=== PATIENT | male | born 1995 | race Caucasian/White ===

== ENCOUNTER 2023-09-17 20:59 | Emergency (ER) | payer MEDICAID, SELFPAY ==
[2023-09-17 20:59] VITALS: BP 145/86; PULSE 104; RESP 18; TEMP 37.2; O2SAT 100; BMI 25.1
--- NOTE | 2023-09-17 21:24 | HMH.EDGENADL ---
Discharge Plan Disposition Patient Disposition: Home, Self-Care Prescriptions Prescriptions: New metronidazole 500 mg tablet 2,000 mg PO ONCE Qty: 4 0RF ondansetron 4 mg tablet,disintegrating 4 mg PO Q6H PRN (Reason: nausea and vomiting) 5 Days Qty: 20 0RF Referrals Follow up/Referrals: Julio Oneill [Referring] - See instructions Provider,Referral, [Primary Care Provider] - See instructions Activity Restrictions/Add. Instructions Additional Instructions/Restrictions: Follow-up with Dr. Oneill to have your teeth extracted. Clinical Impressions Clinical Impression: Dental caries, Trichomoniasis, Nausea Discharge ED Provider: Melisa Pride General Adult HPI General Chief complaint: Dental/Oral Stated complaint: dental pain Time Seen by Provider: 09/17/23 21:14 Mode of Arrival: Ambulatory Source of Information: Patient Limitations: No Limitations Description of Symptoms (Recalled from ER Triage Doc. by RN): Patient reports that he has been having intermittent lower dental problems for a prolonged time. Currently he has some pressure from his left lower jaw that feels as though it's causing a knot in his left neck. Patient currently denies pain, denies fever, states that he had nausea with one episode of vomiting 2 days ago, but denies nausea at this time. History of Present Illness HPI narrative: Patient is a 28-year-old male presenting today with multiple complaints. States has had intermittent dental pain on the left mandibular molars. 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 Currently has no symptoms no pain no swelling. Intermittently has a knot in the left side of his neck but denies that currently. Intermittently also is nauseated. Of note his girlfriend also states she was recently diagnosed with trichomoniasis and would like them to be treated. Have been sexually active without protection. She denies chlamydia gonorrhea etc. Related Data Previous Rx's Medication Instructions Recorded metronidazole 500 mg tablet 2,000 mg PO ONCE #4 tabs 09/17/23 ondansetron 4 mg disintegrating 4 mg PO Q6H PRN nausea and 09/17/23 tablet vomiting 5 days #20 tabs Allergies Allergy/AdvReac Type Severity Reaction Status Date / Time No Known Allergies Allergy Verified 09/17/23 21:22 [facility] Disclaimer: The information contained in this section may have been updated after the patient was seen, as this information can be updated by other users. Social History Smoking Status: Current every day smoker alcohol intake: never current occupational status: other Travel in the last 8 weeks: None ROS Obtained: Yes All systems reviewed & no additional complaints except as documented Physical Exam General General appearance: alert ENT ENT exam: Present other (Extensive dental caries without evidence of significant swelling in the soft tissues no evidence of facial cellulitis mandibular lymphadenopathy etc.) Respiratory Respiratory exam: Present normal lung sounds bilaterally Cardiovascular Cardiovascular exam: Present regular rate Neurological Exam Neurological exam: Present alert Medical Decision Making Meek Inquiry Pt receiving controlled substance: No Vital Signs: 09/17/23 20:59 Temperature 98.9 F Temperature Source Oral Pulse Rate [Right Radial] 104 H Respiratory Rate 18 Blood Pressure [Right Arm] 145/86 H Blood Pressure Mean [Right Arm] 105 Blood Pressure Source [Right Arm] Automatic Cuff Blood Pressure Position [Right Arm] Sitting 02 Sat by Pulse Oximetry 100 Oxygen Delivery Method Room Air Medical Decision Narrative: Patient is a 28-year-old male presented with multiple complaints putting dental caries intermittent pain he is admitted today. No evidence of an active acute infection. Advised that he follow-up with dentist to get his teeth extracted. He is intermittently nauseated is not currently nauseated he requested a prescription of Zofran which I was fine with. Lastly his girlfriend wanted to be treated for trichomoniasis as he had a direct exposure but is asymptomatic we will treat him with 2 g of Flagyl this was sent to his pharmacy. He was discharged in stable condition. Emergent medical condition identified. Critical Care Critical Care Time Critical Care Time: No
[2023-09-17 21:31] VITALS: BP 145/86; PULSE 104; RESP 18; TEMP 37.1; O2SAT 100
== END 2023-09-17 21:32 | disposition home or self-care (01) ==
PROVIDERS: Emergency Provider Student in an Organized Health Care Education/Training Program
DX: G50.1 Atypical facial pain (principal); R11.2 Nausea with vomiting, unspecified; A59.9 Trichomoniasis, unspecified; F17.200 Nicotine dependence, unspecified, uncomplicated
CPT/HCPCS: 99283

== ENCOUNTER 2024-01-31 20:33 | Emergency (ER) | payer MEDICAID, SELFPAY ==
[2024-01-31 20:43] VITALS: BP 143/94; PULSE 109; RESP 16; TEMP 36.8; O2SAT 100; BMI 25.8
--- NOTE | 2024-01-31 20:44 | ED_ITS ---
<Statement entered by Maddi Horner DO - 01/31/24 23:19> I was consulted by the SHAHEEN, and we discussed the complexity of the problems being addressed. I approved the treatment and management plan for this patient's care in the emergency department, thus performing a substantive portion of the medical decision making. Maddi Horner DO Discharge Plan Disposition Patient Disposition: Home, Self-Care Condition: Good Prescriptions Prescriptions: New prednisone 50 mg tablet 50 mg PO DAILY 5 Days Qty: 5 0RF No Action metronidazole 500 mg tablet 2,000 mg PO ONCE Qty: 4 0RF ondansetron 4 mg tablet,disintegrating 4 mg PO Q6H PRN (Reason: nausea and vomiting) 5 Days Qty: 20 0RF Referrals Follow up/Referrals: Provider,Referral, MD [Primary Care Provider] - See instructions Activity Restrictions/Add. Instructions Additional Instructions/Restrictions: Follow-up with your PCP within 48 hours for recheck. Return to ER as needed for any worsening signs or symptoms. I sent in a prescription for steroids to your pharmacy. Clinical Impressions Clinical Impression: Urticaria Instructions Patient Instructions: DI for Hives Discharge ED Provider: Maddi Horner General Adult HPI General Chief complaint: Skin/Abscess/Foreign Body Stated complaint: rash all over,lips feel numb Time Seen by Provider: 01/31/24 20:44 History of Present Illness HPI narrative: Patient presents for evaluation of body wide hives. Patient states that the symptoms began last evening and he was woken up in the middle of the night with itching. He denies any known provocative exposure however he is recently moved into a new residence, has eaten new foods is not tried before, there is new laundry detergent and there is been deodorizer and carpet powder been utilized in their residence. Patient states he took Benadryl and it went away for a little while but is come back. He denies chest pain shortness of breath fever chills hemoptysis hematochezia melena nausea vomit diarrhea. Reports the rash is very itchy. Has never had this before. Related Data Previous Rx's Medication Instructions Recorded metronidazole 500 mg tablet 2,000 mg (4 x 500 mg) PO ONCE #4 09/17/23 tabs ondansetron 4 mg disintegrating 4 mg PO Q6H PRN nausea and 09/17/23 tablet vomiting 5 days #20 tabs prednisone 50 mg tablet 50 mg PO DAILY 5 days #5 tabs 01/31/24 Allergies Allergy/AdvReac Type Severity Reaction Status Date / Time No Known Allergies Allergy Verified 09/17/23 21:22 [facility] Disclaimer: The information contained in this section may have been updated after the patient was seen, as this information can be updated by other users. Social History (Updated 09/17/23 @ 21:26 by Melisa Pride MD) Smoking Status: Current every day smoker alcohol intake: never current occupational status: other Travel in the last 8 weeks: None ROS Obtained: Yes Systems reviewed as appropriate & no additional complaints except as documented Physical Exam General General appearance: alert and in no apparent distress ENT ENT exam: Present normal exam, normal oropharynx and mucous membranes moist Chest Chest inspection: Present normal inspection and symmetric chest wall rise Respiratory Respiratory exam: Present normal lung sounds bilaterally; Absent respiratory distress, wheezes, stridor or accessory muscle use Cardiovascular Cardiovascular exam: Present normal rhythm and tachycardia Abdominal Exam Abdominal exam: Present soft and normal bowel sounds; Absent tenderness, guarding or rebound Extremities Exam Extremities exam: Present normal inspection and full ROM Back Exam Back exam: Present normal inspection, full ROM and tenderness Neurological Exam Neurological exam: Present alert and oriented X3 Psychiatric Psychiatric exam: Present normal affect and normal mood Skin Skin exam: Present dry, intact, rash and other (Patient has a body wide irregularly bordered confluent erythematous raised rash all over his entire torso and extremities sparing the palms and the face.) Medical Decision Making Meek Inquiry Pt receiving controlled substance: No Vital Signs: 01/31/24 20:43 01/31/24 22:11 Temperature 98.3 F 98.3 F Temperature Source Oral Pulse Rate 99 H Pulse Rate [Left] 109 H Respiratory Rate 16 16 Blood Pressure 138/84 Blood Pressure [Right Arm] 143/94 H Blood Pressure Mean [Right Arm] 110 Blood Pressure Source [Right Arm] Automatic Cuff Blood Pressure Position [Right Arm] Sitting 02 Sat by Pulse Oximetry 100 Oxygen Delivery Method Room Air Orders (Tests/Meds): ED MEDICATIONS Discontinued Medications Generic Name Dose Route Start Last Admin Trade Name Freq PRN Reason Stop Dose Admin Dexamethasone Sodium Phosphate 10 mg 01/31/24 21:00 01/31/24 21:08 Dexamethasone 4mg/Ml 5ml Mdv IM 03/01/24 20:59 Not Given Q6H [facility] Dexamethasone Sodium Phosphate 10 mg 01/31/24 21:05 01/31/24 21:08 Dexamethasone 4mg/Ml 1ml Vial IM 01/31/24 21:06 10 mg ONCE ONE Administration Diphenhydramine HCl 50 mg 01/31/24 20:51 01/31/24 21:08 Diphenhydramine 25mg Capsule PO 01/31/24 20:52 50 mg ONCE ONE Administration Famotidine 40 mg 01/31/24 20:54 01/31/24 21:08 Famotidine 20mg Tablet PO 01/31/24 20:55 40 mg ONCE ONE Administration Medical Decision Narrative: In summary patient is a 29-year-old male who presents to the emergency department for evaluation of urticaria. Patient is normotensive tachycardic otherwise stable vital signs satting at 100% on room air reading 16 times a minute upon arrival, afebrile. Physical exam is remarkable for a body wide urticarial rash sparing the palms and the face without any evidence of airway involvement or compromise including normal breath sounds.. Differential diagnosis includes exposure to environmental or ingestion irritants. Initial workup was considered including lab work and chest x-ray however patient has no respiratory involvement no oropharynx involvement thus was deferred. Initial interventions include Pepcid Decadron Benadryl. ]. Upon repeat evaluation patient reports significant improvement in his itching and the rash is started to defervesce. Given this patient is appropriate for discharge with a prescription for oral steroids and instructions to take Benadryl every 4 hours while itching persists. Patient return to ER for any worsening signs and symptoms including shortness of breath. Critical Care Critical Care Time Critical Care Time: No
[2024-01-31] MEDS: diphenhydrAMINE 25MG CAPSULE 50 MG PO (21:08)
[2024-01-31] MEDS: DEXAMETHASONE 4MG/ML 1ML VIAL 10 MG IM (21:08)
[2024-01-31] MEDS: FAMOTIDINE 20MG TABLET 40 MG PO (21:08)
[2024-01-31 22:11] VITALS: BP 138/84; PULSE 99; RESP 16; TEMP 36.8
== END 2024-01-31 22:15 | disposition home or self-care (01) ==
PROVIDERS: Emergency Provider Emergency Medicine
DX: L50.9 Urticaria, unspecified (principal); L29.9 Pruritus, unspecified
CPT/HCPCS: 96372; 99283; J1100